=== PATIENT | male | born 1955 | race African-American/Black ===

== ENCOUNTER → 2020-05-22 | Day surgery (SDC) | payer MEDICARE ==
--- NOTE | 2020-05-19 16:34 | Diagnostic Imaging Report ---
EXAMINATION: CHEST 2 VIEWS INDICATION: Pre-operative COMPARISON: None FINDINGS: LINES/TUBES:None LUNGS:The lungs are moderately inflated. There is perihilar fullness and indistinctness of the pulmonary vasculature. PLEURA:Trace right pleural effusion. No pneumothorax. MEDIASTINUM:Cardiomediastinal silhouette is enlarged. BONES/SOFT TISSUES:No acute osseous injury. Sternotomy wires in place. ABDOMEN:No free air under the diaphragm. IMPRESSION: Cardiomegaly and mild pulmonary interstitial edema. Trace right pleural effusion. No focal pneumonia. Signed by: Syeda Ruff MD on 05/19/2020 4:31 PM
[2020-05-19 16:36] LABS: BASOPHILS % 0.5 % (0.0-1.0); EOSINOPHILS % 0.7 % (0.0-6.0); HEMATOCRIT 33.4 % (38.2-49.6); HEMOGLOBIN 10.6 g/dL (14.0-18.0); LYMPHOCYTES # (AUTO) 0.9 (1.0-3.2); LYMPHOCYTES % 20.2 % (18.0-39.1); MEAN CORPUSCULAR HEMOGLOBIN 31.8 pg (28-32); MEAN CORPUSCULAR HGB CONC 31.7 g/dL (31-35); MEAN CORPUSCULAR VOLUME 100.3 fL (81-99); MONOCYTES # (AUTO) 0.4 (0.2-0.8); MONOCYTES % 9.3 % (4.4-11.3); NEUTROPHILS % 69.1 % (38.7-80.0); PLATELET COUNT 170 x10e3/uL (140-360); RED BLOOD COUNT 3.33 x10e6/uL (4.3-5.7); RED CELL DISTRIBUTION WIDTH 15.2 % (11.7-14.4)
[2020-05-19 16:47] LABS: INR 1.01; PROTHROMBIN TIME 13.8 seconds (11.9-14.5)
[2020-05-19 16:48] LABS: PARTIAL THROMBOPLASTIN TIME 34.1 seconds (23.8-35.5)
[2020-05-19 16:53] LABS: ANION GAP 17.3 mmol/L (8-16); CALCIUM 9.2 mg/dL (8.4-10.2); CREATININE, SERUM 6.33 mg/dL (0.72-1.25); POTASSIUM 4.3 mmol/L (3.5-5.1)
[~2020-05-22] MED LIST: ASPIRIN81 MG PO; ATORVASTATIN CA20 MG PO; CALCIUM ACETAT667 M1 PO; CEFTRIAXONE SOD 1 GM/NS 50 ML 50 ML IV ONE; CLONIDINE HCL0.2 MG PO; CYCLOBENZAPRINE10 MG PO; FENTANYL CITRATE/PF 100MCG/2 ML INJ ONE; FLOMAX0.4 MG PO; FUROSEMIDE40 MG PO; GLIPIZIDE5 MG PO; IOPAMIDOL 300MG/ML 50ML INFUS..BTL IV ONE; LISINOPRIL10 MG PO; METOPROLOL TART50 MG PO; ONDANSETRON HCL INJ 2MG/ML 2ML 2 MG/ML VIAL ONE; PROPOFOL IV EMULSION 10 MG/ML 20 ML VIAL ONE; SEVOFLURANE INHAL SOLN 250 ML PEN BTL ONE; SIMVASTATIN40 MG PO; VITAMIN D310 MCG PO
[2020-05-22 09:00] VITALS: BP 107/94
--- NOTE | 2020-05-31 14:42 | Operative Report ---
DATE OF PROCEDURE: 05/22/2020 SURGEON: Vishal Briseno MD PREOPERATIVE DIAGNOSIS: Bladder outlet obstruction, not responding to therapy. POSTOPERATIVE DIAGNOSIS: Bladder outlet obstruction, not responding to therapy. OPERATIVE PROCEDURES PERFORMED: 1. Flexible cystoscopy. 2. Intraoperative washings for cytology. ANESTHESIA: General anesthesia. ESTIMATED BLOOD LOSS: Minimal. INDICATIONS: Mr. Doni Evans is a 65-year-old gentleman with a long history of bladder outlet obstruction, which is not responding to conservative medical management. He now presents for potential diagnosis of this problem. PROCEDURE IN DETAIL: The patient was brought into the operating room, and placed in supine position. After initiation of general anesthesia, he was prepped and draped in usual sterile fashion. Cystourethroscopy was performed using a flexible cystoscope. The anterior and posterior urethra were noted to be normal. The prostate revealed mild evidence of lateral lobe hyperplasia, but moderate elevation of the median bar. The bladder was entered with moderate difficulty. Upon entrance into the bladder, the ureteral orifices were in normal anatomical position and produce clear efflux. The bladder wall had grade 2 trabeculations without tics, but early cellule formation. There was mild erythema noted on the posterior wall and intraoperative Barbotage samples were obtained and sent to pathology for cytological analysis. There were no other mucosal lesions identified. The bladder was then emptied and the cystoscope and sheath were removed. Anesthesia was reversed and the patient was transferred to the postanesthesia care unit in good condition. Of note, the needle and instrument count were correct at the conclusion of the case. Vishal Briseno MD HLW/MODL /[id number]
== END | disposition home or self-care (01) ==
LOC: OR 05:57
PROVIDERS: ATTEND Urology
DX: N32.0 Bladder-neck obstruction (principal); N40.0 Benign prostatic hyperplasia without lower urinary tract symptoms; N32.89 Other specified disorders of bladder; G47.33 Obstructive sleep apnea (adult) (pediatric); I25.810 Atherosclerosis of coronary artery bypass graft(s) without angina pectoris; I25.2 Old myocardial infarction; D64.9 Anemia, unspecified; E11.22 Type 2 diabetes mellitus with diabetic chronic kidney disease; I12.0 Hypertensive chronic kidney disease with stage 5 chronic kidney disease or end stage renal disease; N18.6 End stage renal disease; Z01.810 Encounter for preprocedural cardiovascular examination; Z01.812 Encounter for preprocedural laboratory examination; Z01.818 Encounter for other preprocedural examination; Z20.828 Contact with and (suspected) exposure to other viral communicable diseases; Z99.2 Dependence on renal dialysis; Z79.84 Long term (current) use of oral hypoglycemic drugs; Z79.82 Long term (current) use of aspirin; Z68.36 Body mass index [BMI] 36.0-36.9, adult
CPT/HCPCS: 36415 ×2; 52000; 71046; 80048; 82948; 85025; 85610; 85730; 88112; 88305; 93005; J0696; J2405; J2704; J3010; Q9967; U0002